=== PATIENT | male | born 1950 | race Caucasian/White ===

== ENCOUNTER 2020-11-13 02:33 | Emergency (ER) | payer MEDICARE ==
[~2020-11-13] VITALS: Ht 165.1 cm; Wt 96.5 kg
--- NOTE | 2020-11-13 02:51 | EKG ---
[address] [address] Test Date: 2020-11-13 Test Time: 02:38:45 Pat Name: MIRANDA JEREZ Department: Room: Gender: M Protection Analyst: TORITO : 1950 Requested By: VIRI MARINO Order Number: [id number] Reading MD: Measurements Intervals [place] Rate: 59 P: HI: QRS: -18 QRSD: 88 T: 47 QT: 410 QTc: 410 Interpretive Statements IRREGULAR RHYTHM, NO P-WAVE FOUND LEFTWARD AXIS QRS(T) CONTOUR ABNORMALITY CONSISTENT WITH INFERIOR INFARCT PROBABLY OLD ABNORMAL ECG RI6.02 No previous ECG available for comparison
[2020-11-13 02:53] LABS: BASO # 0.1 x10^3/uL (0.0-0.2); BASO % 1 % (0-3); EOS # 0.3 x10^3/uL (0.0-0.7); EOS % 2 % (0-3); HEMATOCRIT 39.7 % (39.0-53.0); HEMOGLOBIN 13.1 g/dL (13.0-17.5); LYMPH # 2.4 x10^3/uL (1.0-4.8); LYMPH % 17 % (24-48); MEAN CORPUSCULAR HEMOGLOBIN 29 pg (25-35); MEAN CORPUSCULAR HGB CONC 33 g/dL (31-37); MEAN CORPUSCULAR VOLUME 86 fL (79-100); MONO # 1.7 x10^3/uL (0.0-1.1); MONO % 12 % (0-9); NEUT # 9.8 x10^3uL (1.8-7.7); NEUT % 68 % (31-73); PLATELET COUNT 128 x10^3/uL (140-400); RED BLOOD COUNT 4.59 x10^6/uL (4.30-5.70); RED CELL DISTRIBUTION WIDTH 14.5 % (11.5-14.5); WHITE BLOOD COUNT 14.4 x10^3/uL (4.0-11.0)
--- NOTE | 2020-11-13 02:54 | PHYS DOC ---
Past History Past Medical History: CAD, High Cholesterol, Hypertension, [place] Past Surgical History: Coronary Bypass Surgery Additional Past Surgical Histo: Cardiac stents Smoking: Non-smoker Drug Use: None General Adult EDM: Chief Complaint: Chest pain HPI: HPI: 70-year-old male with past medical history of cardiac disease who underwent a prior CABG and cardiac stents presents with report of sudden throat for 4 hours. Reports pain was consistent and did radiate into his right jaw. Reports some shortness of air. Denies any cough. Denies fever or chills. Denies known exposure to COVID-19. Denies leg/calf tenderness. Reports cardiac risk factors of prior CAD, high blood pressure, and high cholesterol. Denies trauma. Review of Systems: Review of Systems: Constitutional: Denies fever or chills Eyes: Denies redness or eye pain HENT: Denies nasal congestion or sore throat; reports right jaw pain Respiratory: Denies cough or shortness of breath Cardiovascular: Reports chest pain; denies palpitations GI: Denies abdominal pain, nausea, or vomiting : Denies dysuria or hematuria Musculoskeletal: Denies back pain or joint pain Integument: Denies rash or skin lesions Neurologic: Denies headache, focal weakness or sensory changes Complete systems were reviewed and found to be within normal limits, except as documented in this note. Current Medications: Current Meds: Current Medications Medications (Trade) Dose Ordered Sig/Gaston Start Time Stop Time Status Last Admin Dose Admin Aspirin (Breanne Aspirin) 325 mg 1X ONCE 11/13/20 02:45 11/13/20 02:46 UNV Physical Exam: PE: Constitutional: Well developed, well nourished, no acute distress, non-toxic appearance HENT: Normocephalic, atraumatic Eyes: Conjunctiva normal, no discharge Neck: Normal range of motion, supple Lungs & Thorax: No respiratory distress, equal chest rise and fall Abdomen: Soft, no tenderness Skin: Warm, dry, no erythema, no rash Back: No tenderness, no CVA tenderness Extremities: No tenderness, ROM intact, no edema Neurologic: Alert and oriented X 3, normal motor function, normal sensory f unction, no focal deficits noted Psychologic: Affect normal, judgment normal EKG: EKG: @0238 Sinus bradycardia at 59bpm, NO ST elevation, QRS 98ms, QT/QTc 410/410ms @0309 Sinus bradycardia at 53bpm, No ST elevation, QRS 86ms, QT/QTc 414/391ms Radiology/Procedures: Radiology/Procedures: PROCEDURE: PORTABLE CHEST 1V XR CHEST 1V Clinical Indication: Reason: chest pain / Spl. Instructions: / History: Comparison: None. Findings: There are CABG changes. The cardiomediastinal silhouette is normal. Lungs are clear. There is no pneumothorax. No pleural effusion is appreciated. No acute bone abnormality. IMPRESSION: No acute cardiopulmonary process. Electronically signed by: Maximiliano Arreguin MD (11/13/2020 3:52 AM) [facility] Heart Score: C/O Chest Pain: Yes HEART Score for Chest Pain: HEART Score for Chest Pain Response (Comments) Value History Moderately Suspicious 1 ECG Normal 0 Age > 65 2 Risk Factors >3 Risk Factors or Hx CAD 2 Troponin < Normal Limit 0 Total 5 Risk Factors: Risk Factors: DM, Current or recent (<one month) smoker, HTN, HLP, family history of CAD, obesity. Risk Scores: Score 0 - 3: 2.5% MACE over next 6 weeks - Discharge Home Score 4 - 6: 20.3% MACE over next 6 weeks - Admit for Clinical Observation Score 7 - 10: 72.7% MACE over next 6 weeks - Early Invasive Strategies Course & Med Decision Making: Course & Med Decision Making Pertinent Labs and Imaging studies reviewed. (See chart for details) Patient with significant cardiac risk factors presents with 4-hour history of sudden chest pain. Patient reports symptoms are better after taking 2 sublingual nitroglycerin. Aspirin provided. EKG stable. Labs obtained and posted to chart. Initial troponin. HEART score 5. Patient requiring admission for further evaluation and treatment. Discussed with Dr. Mckeon (hospitalist) who is in agreement with admission. Cardiology consultation placed. Discussed findings and plan with patient, who acknowledges understanding and agreement. Bharathi Disclaimer: Bharathi Disclaimer: This electronic medical record was generated, in whole or in part, using a voice recognition dictation system. Departure Departure: Impression: Primary Impression: Chest pain Qualified Codes: R07.9 - Chest pain, unspecified Disposition: ADMITTED INPATIENT Admitting Physician: Lino Mckeon Condition: STABLE Referrals: DENISA BERKOWITZ DO (PCP) VIRI MARINO DO Nov 13, 2020 02:53
[2020-11-13 02:57] LABS: CALCIUM 8.3 mg/dL (8.5-10.1); GFR 74.1; POTASSIUM 4.4 mmol/L (3.5-5.1)
[2020-11-13] MEDS ORDERED: ASPIRIN 325 MG TABLET PO ONE (03:00)
[2020-11-13 03:14] LABS: ALBUMIN 3.1 g/dL (3.4-5.0); MAGNESIUM 1.9 mg/dL (1.8-2.4); TOTAL BILIRUBIN 0.2 mg/dL (0.2-1.0); TOTAL PROTEIN 6.2 g/dL (6.4-8.2)
--- NOTE | 2020-11-13 03:54 | RAD ---
XR CHEST 1V Clinical Indication: Reason: chest pain / Spl. Instructions: / History: Comparison: None. Findings: There are CABG changes. The cardiomediastinal silhouette is normal. Lungs are clear. There is no pneu mothorax. No pleural effusion is appreciated. No acute bone abnormality. IMPRESSION: No acute cardiopulmonary process. Electronically signed by: Maximiliano Arreguin MD (11/13/2020 3:52 AM) [facility]
[2020-11-13] MEDS ORDERED: ONDANSETRON PF 4 MG/2 ML VIAL. IVP PRN (04:00)
[2020-11-13 04:36] LABS: BACTERIA,URINE 0 /HPF (0-FEW); BILIRUBIN,URINE NEG (NEG); CLARITY,URINE CLEAR; COLOR,URINE YELLOW; GLUCOSE,URINE NEG (NEG); NITRITE,URINE NEG (NEG); SQUAMOUS EPITHELIAL CELL,UR OCC /LPF; UROBILINOGEN,URINE 0.2 mg/dL (0.2 mg/dL); WBC,URINE OCC /HPF (0-4)
--- NOTE | 2020-11-13 04:38 | EKG ---
[facility] [address] [place] [address] Test Date: 2020-11-13 Test Time: 03:09:23 Pat Name: MIRANDA JEREZ Department: Room: Gender: M Translator Interpreter: TORITO : 1950 Requested By: VIRI MARINO Order Number: [id number] Reading MD: Measurements Intervals [place] Rate: 53 P: 0 TN: 200 QRS: -31 QRSD: 86 T: 29 QT: 414 QTc: 391 Interpretive Statements SINUS RHYTHM ABNORMAL LEFT AXIS DEVIATION QRS(T) CONTOUR ABNORMALITY CONSISTENT WITH INFERIOR INFARCT AGE UNDETERMINED ABNORMAL ECG RI6.02 No previous ECG available for comparison
--- NOTE | 2020-11-13 08:32 | NUR ---
Patient received a breakfast tray
--- NOTE | 2020-11-13 09:54 | PDOC2 ---
CARDIAC CONSULT DATE OF CONSULT DOS: DATE: 11/13/20 TIME: 09:46 REASON FOR CONSULT Reason for Consult chest pain REFERRING PHYSICIAN Referring Physician Dr. Ryan SOURCE Source: Chart review HPI History of Present Illness This is a 70 yo male who presented secondary to chest pain. Patient reports experiencing pressure in his central chest that radiated up to his neck the last two nights when he lays down in bed. Took ASA this first night and pain resolved after about 3 hours. Last night, he took nitro x2 without any immediate relief. Pain did resolved after about an hour and a half. No associate dizziness, diaphoresis, palpitations, or shortness of breath. Pain did not radiated to his back or down his arms. Patient does have a history of CAD s/p CABG in [place] about 5 years ago. 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 Patient reports pain to be different from what he previously experienced with [place]. No recent cardiac workup. He also has a history of GERD. Has been out of pantoprazole for about a week and a half. Is feeling well presently. PAST MEDICAL HISTORY Cardiovascular: CAD (s/p PCI/stent and subsequent CABG), HTN, hyperipidemia GI: GERD PAST SURGICAL HISTORY Past Surgical History: CABG FAMILY HISTORY Family History: Hypertension SOCIAL HISTORY Smoke: No ALCOHOL: none Drugs: None Lives: with Family CURRENT MEDICATIONS Current Medications Current Medications Aspirin (Breanne Aspirin) 325 mg 1X ONCE PO Last administered on 11/13/20at 03:10; Start 11/13/20 at 03:00; Stop 11/13/20 at 03:01; Status DC Ondansetron HCl (Zofran) 4 mg PRN Q4HRS PRN IVP NAUSEA/VOMITING; Start 11/13/20 at 04:00; Stop 11/14/20 at 03:59 Fentanyl Citrate (Fentanyl 2ml Vial) 50 mcg PRN Q2HR PRN IVP PAIN; Start 11/13/20 at 04:00; Stop 11/14/20 at 03:59 ALLERGIES Allergies: Coded Allergies: No Known Drug Allergies (Unverified , 11/13/20) ROS Review of Systems 14 point ROS conducted with pertinent positives noted in HPI. PHYSICAL EXAM General: Alert, Oriented X3, Cooperative, No acute distress HEENT: Atraumatic, Mucous membr. moist/pink Lungs: Clear to auscultation Heart: Regular rate Abdomen: Soft, No tenderness Extremities: No edema, Normal pulses Skin: No breakdown Neuro: Normal speech, Sensation intact Psych/Mental Status: Mental status NL, Mood NL MUSCULOSKELETAL: Osteoarthritic changes both hands VITALS Vital Signs Vital Signs Date Time Temp Pulse Resp B/P (MAP) Pulse Ox O2 Delivery O2 Flow Rate FiO2 11/13/20 02:33 98.6 55 13 116/76 97 Room Air LABS LABS Laboratory Tests Test 11/13/20 02:38 11/13/20 02:58 11/13/20 04:00 11/13/20 08:10 White Blood Count 14.4 x10^3/uL (4.0-11.0) Red Blood Count 4.59 x10^6/uL (4.30-5.70) Hemoglobin 13.1 g/dL (13.0-17.5) Hematocrit 39.7 % (39.0-53.0) Mean Corpuscular Volume 86 fL (79-100) Mean Corpuscular Hemoglobin 29 pg (25-35) Mean Corpuscular Hemoglobin Concent 33 g/dL (31-37) Red Cell Distribution Width 14.5 % (11.5-14.5) Platelet Count 128 x10^3/uL (140-400) Neutrophils (%) (Auto) 68 % (31-73) Lymphocytes (%) (Auto) 17 % (24-48) Monocytes (%) (Auto) 12 % (0-9) Eosinophils (%) (Auto) 2 % (0-3) Basophils (%) (Auto) 1 % (0-3) Neutrophils # (Auto) 9.8 x10^3uL (1.8-7.7) Lymphocytes # (Auto) 2.4 x10^3/uL (1.0-4.8) Monocytes # (Auto) 1.7 x10^3/uL (0.0-1.1) Eosinophils # (Auto) 0.3 x10^3/uL (0.0-0.7) Basophils # (Auto) 0.1 x10^3/uL (0.0-0.2) Sodium Level 140 mmol/L (136-145) Potassium Level 4.4 mmol/L (3.5-5.1) Chloride Level 107 mmol/L (98-107) Carbon Dioxide Level 28 mmol/L (21-32) Anion Gap 5 (6-14) Blood Urea Nitrogen 21 mg/dL (8-26) Creatinine 1.0 mg/dL (0.7-1.3) Estimated GFR (Cockcroft-Gault) 74.1 BUN/Creatinine Ratio 21 (6-20) Glucose Level 122 mg/dL (70-99) Calcium Level 8.3 mg/dL (8.5-10.1) Magnesium Level 1.9 mg/dL (1.8-2.4) Total Bilirubin 0.2 mg/dL (0.2-1.0) Aspartate Amino Transf (AST/SGOT) 14 U/L (15-37) Alanine Aminotransferase (ALT/SGPT) 20 U/L (16-63) Alkaline Phosphatase 68 U/L (46-116) Creatine Kinase 75 U/L (39-308) Creatine Kinase MB (Mass) 1.0 ng/mL (0.0-3.6) Creatine Kinase MB Relative Index 1.3 % (0-4) Troponin I Quantitative < 0.017 ng/mL (0-0.055) < 0.017 ng/mL (0-0.055) SJ-Xnl-D-Type Natriuretic Peptide 328 pg/mL (0-124) Total Protein 6.2 g/dL (6.4-8.2) Albumin 3.1 g/dL (3.4-5.0) Albumin/Globulin Ratio 1.0 (1.0-1.7) Lipase 156 U/L (73-393) SARS-CoV-2 Antigen (Rapid) Negative (NEGATIVE) Urine Collection Type Void Urine Color Yellow Urine Clarity Clear Urine pH 5.0 Urine Specific [place] 1.025 Urine Protein Neg (NEG-TRACE) Urine Glucose (UA) Neg mg/dL (NEG) Urine Ketones (Stick) Neg mg/dL (NEG) Urine Blood Mod (NEG) Urine Nitrite Neg (NEG) Urine Bilirubin Neg (NEG) Urine Urobilinogen Dipstick 0.2 mg/dL (0.2 mg/dL) Urine Leukocyte Esterase Neg (NEG) Urine RBC 1-2 /HPF (0-2) Urine WBC Occ /HPF (0-4) Urine Squamous Epithelial Cells Occ /LPF Urine Bacteria 0 /HPF (0-FEW) ASSESSMENT/PLAN Assessment/Plan 1. Chest pain, atypical. Troponin series negative- AMI ruled out. Most probably GI related as he ran out of PPI 2 weeks ago 2. CAD s/p PCI/stents and subsequent CABG about 5 years ago in [place]. Has appointment to establish care with Dr. Putnam later this week 3. Hypertension; controlled 4. Hyperlipidemia; statin 5. GERD Recommendations Resume secondary prevention ASA/statin therapy Lipids Echo to assess LV systolic function Resume PPI Outpatient ischemic evaluation; patient will decided if he would like this conducted at [facility] or through Dr. Putnam group. EDUIN KINGSLEY APRN Nov 13, 2020 09:54
--- NOTE | 2020-11-13 17:08 | SSS ---
ADMIT DATE: 11/13/2020 HISTORY OF PRESENT ILLNESS: The patient is a 70-year-old male patient who presented to the Emergency Room of [facility] with a complaint of chest pain that was retrosternal that radiates to his right jaw, associated with some shortness of breath. Denied any cough, denied any fever, denied any known exposure to COVID-19. Denied any leg or calf tenderness. He reports that he has had coronary artery disease, for which he underwent coronary artery bypass surgery and also a stent placement before. The patient was extensively investigated in the Emergency Room of [facility] and has had 3 sets of cardiac enzymes that ruled out acute myocardial infarction. His troponin I was less than 0.017. The patient was seen in consultation by the Cardiology team and apparently a decision was made to discharge him to be discharged for outpatient ischemic evaluation. He wanted to continue with Dr. Putnam and was discharged home to follow with his primary care physician. PAST MEDICAL HISTORY: Significant for coronary artery disease status post PCI stent deployment, subsequent coronary artery bypass surgery, hypertension, hyperlipidemia, gastroesophageal reflux disease. PAST SURGICAL HISTORY: Significant for CABG. FAMILY HISTORY: Positive for hypertension. SOCIAL HISTORY: He apparently lives with his family. He does not smoke, drink alcohol or use recreational drugs. ALLERGIES: He has no known drug allergies. MEDICATIONS: He is currently on atorvastatin 40 mg at bedtime, metoprolol 50 mg twice a day, Protonix 40 mg once a day and aspirin 81 mg once a day. REVIEW OF SYSTEMS: As per history of present illness. PHYSICAL EXAMINATION: GENERAL: When I saw him, he looked well and was clearly in no apparent respiratory distress. No pallor, jaundice, cyanosis or thyromegaly. No jugular venous distention. No limb edema. VITAL SIGNS: His heart rate was 84, blood pressure was 113/46, temperature was 98, respiratory rate was 20 and oxygen saturation was 97% on room air. HEAD, EYES, EARS, NOSE, AND THROAT: Normocephalic, atraumatic. NECK: Supple. HEART: Normal first and second heart sounds; no gallop, rub or murmur. CHEST: Clear to auscultation, no crepitation or rhonchi. ABDOMEN: Distended, soft, nontender. NEUROLOGIC: He was grossly intact. LABORATORY DATA: In the Emergency Room showed a white cell count of 14,400, hemoglobin 13, hematocrit 39, MCV 86 and platelet count of 128,000 with normal manual differential. His chemistry showed a serum sodium 140, potassium 4.4, chloride 107, bicarbonate 28, anion gap of 5, BUN 21, creatinine 1, estimated GFR was 74 mL per minute. His glucose 122, calcium was 8.3, magnesium was 1.9. Total bilirubin, AST, ALT, alkaline phosphatase were normal. Total protein was 6.2, albumin 3.1, serum lipase 156. He had 3 sets of cardiac enzymes, all of them showed troponin to be less than 0.017. His EKG showed that he was in sinus bradycardia with a heart rate of 59 beats per minute. No ST segment elevation. The patient was discharged home to continue on atorvastatin 40 mg at bedtime, metoprolol 50 mg twice a day, Protonix 40 mg once a day and aspirin 81 mg once a day. FINAL DISCHARGE DIAGNOSES: 1. Chest pain, atypical, acute myocardial infarction ruled out. 2. Coronary artery disease, status post percutaneous coronary intervention with stent deployment as well as coronary artery bypass surgery, hypertension, hyperlipidemia, gastroesophageal reflux disease. ROMINA DR: Lianne TID: [id number]
[2020-11-13 17:10] VITALS: BP 112/57
== END 2020-11-13 17:11 | disposition home or self-care (01) ==
LOC: ER 02:33
DX: R07.89 Other chest pain (principal); E78.5 Hyperlipidemia, unspecified; I10 Essential (primary) hypertension; I25.2 Old myocardial infarction; Z20.822 Contact with and (suspected) exposure to COVID-19
CPT/HCPCS: 36415; 71045; 80053; 80061; 81001; 82553; 83690; 83735; 83880; 84484; 85025; 87426; 93005; 99285; U0003